=== PATIENT | female | born 1970 | race Hispanic/Latino ===

== ENCOUNTER 2021-11-20 08:22 | Emergency (ER) | payer BC ==
[2021-11-20 08:53] LABS: #Basophils 0.1 thou/uL (0.0-0.2); #Eosinphils 0.3 thou/uL (0.0-0.7); #Lymphocytes 1.7 thou/uL (1.20-3.40); #Monocytes 0.6 thou/uL (0.11-0.59); #Neutrophils 2.5 thou/uL (1.40-6.50); %Basophils 2.3 % (0.0-1.0); %Lymphocytes 33.3 % (21.0-51.0); %Monocytes 11.4 % (0.0-10.0); Hemoglobin 16.2 g/dL (12.0-16.0); Mean Corpuscular HGB CONC 32.5 g/dL (32.0-36.0); Mean Corpuscular Hemoglobin 30.7 pg (27.0-31.0); Mean Corpuscular Volume 94.4 fL (78.0-98.0); Platelet Count 152 thou/uL (130-400); RBC Distribution Width 12.9 % (11.5-14.5); Red Blood Cell (RBC) Count 5.28 mill/uL (4.20-5.40); White Blood Cell (WBC) Count 5.1 thou/uL (4.8-10.8)
[2021-11-20 09:19] LABS: ALT (SGPT) 123 U/L (8-55); AST (SGOT) 76 U/L (5-34); Alkaline Phosphatase 80 U/L (40-110); Anion Gap 12 mmol/L (10-20); BUN (Urea Nitrogen) 10 mg/dL (7.0-18.7); Bilirubin, Total 0.5 mg/dL (0.2-1.2); Calc. Creatinine Clearance 0 mL/min (70-130); Calcium 9.6 mg/dL (7.8-10.44); Carbon Dioxide 26 mmol/L (22-29); Chloride 105 mmol/L (98-107); Estimated GFR 110; Globulin 3.4 g/dL (2.4-3.5); Glucose 107 mg/dL (70-105); Lipase 19 U/L (8-78); Potassium 3.9 mmol/L (3.5-5.1); Protein, Total 7.4 g/dL (6.0-8.3); Sodium 139 mmol/L (136-145)
[2021-11-20] MEDS ORDERED: Ketorolac Tromethamine 30 MG/ML VIAL ONE (09:34)
[2021-11-20] MEDS ORDERED: Acetaminophen 500 MG TAB ONE ×2 (09:48)
[2021-11-20] MEDS ORDERED: Iopamidol-370 76% 500 ML 1 ML ONE (13:35)
== END 2021-11-20 12:45 | disposition home or self-care (01) ==
LOC: ERS 08:22
DX: U07.1 COVID-19 (principal); R07.2 Precordial pain; I10 Essential (primary) hypertension; Z79.899 Other long term (current) drug therapy
CPT/HCPCS: 71045; 71275; 80053; 83690; 84484; 85025; 93005; J1885; Q9967

== ENCOUNTER 2021-12-28 08:42 | Emergency (ER) | payer BC ==
[2021-12-28] MEDS ORDERED: Bupivacaine 0.25% 10 ML VIAL ONE ×3 (09:51→10:45)
== END 2021-12-28 12:03 | disposition home or self-care (01) ==
LOC: ERS 08:42
DX: S52.501A Unspecified fracture of the lower end of right radius, initial encounter for closed fracture (principal); I10 Essential (primary) hypertension; Z79.899 Other long term (current) drug therapy; X58.XXXA Exposure to other specified factors, initial encounter
CPT/HCPCS: 25605; S0020

== ENCOUNTER 2022-01-04 13:41 | Day surgery (SDC) | payer BC ==
[2022-01-03 11:20] VITALS: BMI 42.0
[2022-01-04] MEDS ORDERED: Sodium Chloride 0.9% 100 ML ONE (14:44)
[2022-01-04] MEDS ORDERED: CEFAZOLIN 2 GM VIAL ONE (14:44)
[2022-01-04] MEDS ORDERED: Lidocaine 1% MPF 2 ML VIAL ONE ×2 (14:44→16:09)
[2022-01-04] MEDS ORDERED: Bupivacaine PF 0.5% 30 ML VIAL ONE (15:53)
[2022-01-04] MEDS ORDERED: Bupivacaine 0.25% 10 ML VIAL ONE (15:53)
[2022-01-04] MEDS ORDERED: fentaNYL Citrate/PF 100 MCG/2 ML SYRINGE ONE (16:03)
[2022-01-04] MEDS ORDERED: Morphine 4 MG/ML VIAL ONE (16:04)
[2022-01-04] MEDS ORDERED: Dexamethasone 20 MG/5 ML VIAL ONE (16:09)
[2022-01-04] MEDS ORDERED: Ketorolac Tromethamine 30 MG/ML VIAL ONE (16:09)
[2022-01-04] MEDS ORDERED: Ondansetron PF 4 MG/2 ML Vial ONE (16:09)
[2022-01-04] MEDS ORDERED: PROPOFOL 200 MG/20 ML VIAL ONE (16:09)
[2022-01-04] MEDS ORDERED: Ketamine 50 MG/ML (10ML VIAL) ONE (16:10)
[2022-01-04] MEDS ORDERED: Fentanyl 100 MCG/2 ML VIAL ONE (17:55)
[2022-01-04] MEDS ORDERED: Labetalol HCl 100 MG/20 ML VIAL ONE (18:09)
== END 2022-01-04 19:40 | disposition home or self-care (01) ==
LOC: SDC 13:41
PROVIDERS: ATTEND Orthopaedic Surgery
PROC: 0PSH04Z Reposition Right Radius with Internal Fixation Device, Open Approach (ICD-10-PCS; principal; 2022-01-04)
DX: S52.531A Colles' fracture of right radius, initial encounter for closed fracture (principal); I10 Essential (primary) hypertension; G43.909 Migraine, unspecified, not intractable, without status migrainosus; Z79.899 Other long term (current) drug therapy; W19.XXXA Unspecified fall, initial encounter
CPT/HCPCS: 76000; C1713; J0690; J1100; J1885; J2270; J2405; J2704; J3010; J3490; S0020

== ENCOUNTER 2024-05-05 07:03 | Emergency (ER) | payer BC ==
[2024-05-05] MEDS ORDERED: Meclizine HCl 25 MG TAB ONE (08:06)
[2024-05-05 08:23] LABS: Bacteria/HPF None Seen HPF (None Seen); Bilirubin Negative (Negative); Blood, Urine Negative (Negative); CAUTI Indications for Culture Pelvic or flank pain; Clarity Clear (Clear); Glucose, Urine (Dipstick) Normal (Negative); Ketone, Urine Negative (Negative); Leukocyte Negative Leu/uL (Negative); Nitrite Negative (Negative); Protein, Urine (Dipstick) Negative (Neg-Trace); RBC/HPF 0-3 HPF (0-3); Specific Gravity, Urine 1.019 (1.002-1.036); Squamous Epithelial None Seen HPF (0-3); Urobilinogen Normal mg/dL (Less than 2); WBC/HPF 0-3 HPF (0-3)
[2024-05-05 08:24] LABS: Urine Culture Reflex No No
[2024-05-05 08:27] LABS: #Basophils 0.05 10x3/uL (0.0-0.2); %Basophils 0.7 % (0.0-1.0); %Eosinophils 1.8 % (0.0-10.0); %Lymphocytes 31.5 % (21.0-51.0); %Monocytes 8.3 % (0.0-10.0); %Neutrophils 57.6 % (42.0-75.0); Hematocrit 45.1 % (36.0-47.0); Hemoglobin 14.9 g/dL (12.0-16.0); Mean Corpuscular Hemoglobin 29.4 pg (27.0-31.0); Mean Platelet Volume 10.8 fL (7.4-10.4); Platelet Count 191 10x3/uL (130-400); Red Blood Cell (RBC) Count 5.07 mill/uL (4.20-5.40)
[2024-05-05 08:35] LABS: BHCG - Serum Negative (NEGATIVE); Pregs Control Background? CLEAR/WHITE (CLR/WHITE); Pregs Control Bar Appear? YES (CONTROL BAR)
[2024-05-05 08:41] LABS: ALT (SGPT) 50 U/L (8-55); AST (SGOT) 36 U/L (5-34); Alkaline Phosphatase 60 U/L (40-110); Anion Gap 13 mmol/L (10-20); BUN (Urea Nitrogen) 11 mg/dL (9.8-20.1); Bilirubin, Total 0.4 mg/dL (0.2-1.2); Calc. Creatinine Clearance 0 mL/min (70-130); Calcium 9.4 mg/dL (7.8-10.44); Carbon Dioxide 25 mmol/L (22-29); Chloride 106 mmol/L (98-107); Estimated GFR 109; Globulin 3.8 g/dL (2.4-3.5); Glucose 91 mg/dL (70-105); Magnesium 2.1 mg/dL (1.6-2.6); Potassium 4.3 mmol/L (3.5-5.1); Protein, Total 7.8 g/dL (6.0-8.3); Sodium 140 mmol/L (136-145)
[2024-05-05 08:46] LABS: Troponin I Less than 0.010 ng/mL (< 0.028)
[2024-05-05] MEDS ORDERED: Ondansetron PF 4 MG/2 ML Vial ONE (09:36)
[2024-05-05] MEDS ORDERED: Diazepam 10 MG/2 ML SYRINGE ONE (09:37)
== END 2024-05-05 10:48 | disposition home or self-care (01) ==
LOC: ERS 07:03
DX: H81.13 Benign paroxysmal vertigo, bilateral (principal); I10 Essential (primary) hypertension
CPT/HCPCS: 36415; 70450; 80053; 81001; 83735; 84484; 84703; 85025; 93005; 96374; 96375; J2405; J3360